=== PATIENT | male | born 1970 | race Caucasian/White ===

== ENCOUNTER 2018-12-23 15:02 | Inpatient (IN) ==
--- NOTE | 2018-12-23 16:19 | CT Scan Report ---
HEAD CT NONCONTRAST CT DOSE: 537.48 mGy.cm HISTORY: Severe headache, anticoagulated TECHNIQUE: Multiaxial CT images of the head were performed without the use of intravenous contrast. A utomated exposure control was utilized for this study. A dose lowering technique was utilized adheri ng to the principles of ALARA. Comparison: None. Findings: The paranasal sinuses and mastoid air cells are clear. The calvarium and skull base are int act. The ventricles and sulci are within normal limits. There is no mass, hematoma, midline shift, or acute infarct. Impression: No acute intracranial abnormality. Electronically signed by: Willy Guzmán M.D. 12/23/2018 4:18 PM
[2018-12-23 16:20] LABS: Basophils # (auto) 0.03 K/uL (0-0.2); Basophils % (auto) 0.5 %; Eosinophils # (auto) 0.11 K/uL (0-0.5); Eosinophils % (auto) 1.7 %; Hematocrit (blood only) 28.5 % (42-52); Hemoglobin 9.4 g/dL (14.0-18.0); Immature Granulocytes # (auto) 0.01 K/uL (0.00-0.02); Immature Granulocytes % (auto) 0.2 %; Lymphocytes # (auto) 1.75 K/uL (1.2-3.4); Lymphocytes % (auto) 26.4 %; Mean Corpuscular Volume 89.6 fL (80-100); Mean Platelet Volume 8.9 fL (7.4-10.4); Monocytes # (auto) 0.42 K/uL (0.11-0.59); Monocytes % (auto) 6.3 %; Neutrophils # (auto) 4.32 K/uL (1.4-6.5); Neutrophils % (auto) 64.9 %; Platelet Count 233 K/uL (130-400); RDW Coefficient of Variation 15.5 % (11.5-14.5); RDW Standard Deviation 50.2 fL (36.4-46.3); Red Blood Count 3.18 M/uL (4.7-6.1); White Blood Count 6.64 K/uL (4.8-10.8)
--- NOTE | 2018-12-23 16:23 | XRay Report ---
XR chest 1V portable HISTORY: dizziness COMPARISON: None. FINDINGS: The heart is normal in size. Small left pleural effusion and left basilar densities. The ri ght lung is clear. No pneumothorax. No evidence for pulmonary edema. Poststernotomy changes. Right ju gular catheter terminates at the right atrium. IMPRESSION: Small left pleural effusion and left basilar densities. This favors atelectasis from the pleural effu britton but could also represent a pneumonia. Electronically signed by: Willy Guzmán M.D. 12/23/2018 4:22 PM
[2018-12-23] MEDS ORDERED: SODIUM CHLORIDE 0.9% 1000ML 1,000 ML IV STA (16:30)
[2018-12-23 16:36] LABS: INR 2.2 (0.9-1.1); Partial Thromboplastin Ratio 1.3; Partial Thromboplastin Time 34.2 Seconds (21.0-31.0)
[2018-12-23 16:57] LABS: Albumin Globulin Ratio 0.6 (0.9-2); Albumin Level 2.3 gm/dl (3.4-5.0); Bilirubin,Total 0.3 mg/dl (0.2-1); Est GFR (African American) 9.4; Est GFR (Non-African American) 8.1; Globulin 4.1 gm/dl (2.5-4.0); Magnesium 2.1 mg/dl (1.8-2.4); Potassium 4.7 mmol/L (3.5-5.1); Total Protein 6.4 gm/dl (6.4-8.2); Troponin I 0.017 ng/ml (0-0.045)
--- NOTE | 2018-12-23 18:30 | History & Physical Report ---
Date of Service December 23, 2018 Assessment & Plan (1) Stroke-like symptoms: Likely related to elevated BP, resolved CT head: neg for acute MRI/MRA pending Resume home meds + new medications as per [facility] d/c summary Had an ECHO on admission, EF 50-55%, will not repeat Tele monitor Pt states hx of prior plavix use but was stopped given coumadin use Will hold on neuro c/s for now Hold on PT/OT/ST for now (2) CKD (chronic kidney disease): HD M/W/F Renal c/s pending (3) Pulmonary emboli: Continue coumadin Takes 5mg M/W/F/Peck, 7.5mg others (4) Hypothyroid: States he takes medication for this, but nothing on d/c paperwork Pt could not remember the name of the medication and when I suggested levothyroxine, he agreed. Has no idea regarding dosing Will need clarified (5) Hyperlipidemia: continue home meds LDL 12/21 129 (6) HTN (hypertension): As above (7) DM type 2 (diabetes mellitus, type 2): SSI PRN Home lantus dose is 23 units HS A1c done 12/21 8.2 (8) Myocardial infarct: CABG 2016, no longer on plavix due to coumadin use per pt (9) GERD (gastroesophageal reflux disease): States he is not supposed to take omeprazole due to its potential for kidney damage but that it works better than what he was changed to so he buys this over the counter (10) DVT prophylaxis: Therapeutic on coumadin History of Present Illness Primary Care Provider: NO PCP 48 y/o M c/o sudden onset R sided n/t and weakness. Pt was d/c'd from [facility] earlier today. He had been admitted there for 3 days for uncontrolled HTN. Pt had been at HD on 12/20. His usual HD days are M//, but he missed his Saturday session due to feeling generally unwell. He was at HD and states his BP was 220/201. He states that this happens frequently when he first starts HD but that as he has his tx it will go back to a more reasonable level. It did not and pt developed chest pain, so he was sent to the ED at [facility] after he completed HD. Per records from [facility], during his admission, pt had an ECHO that showed EF 50-55%. He was started on clonidine patch and valsartan. Both pt and records state that on d/c pt was doing well. His BP was WNL and he felt fine to go home. Pt states that he left and drove to home and then the grocery and had no issues. Later, he noted sudden onset of R sided n/t and weakness. He has peripheral neuropathy and therefore some ambulation issues at baseline, however this was different. He could not move his R side to walk at all. He felt very weak. He called his cousin who is a nurse. She came over to his home, but pt's sx had resolved spontaneously. While she was there, these sx returned and it was decided he should come to the ED. He has never had these sx prior. While in the ED, pt's sx resolved. He states that he feels at his usual with the exception of his R 5th finger is still n/t. He was able to ambulate without issue other than his usual dysfunction related to his PN. Pt denies headache or vision changes. Pt denies fever, SOB, chest pain, abd pain, n/v. Pt states he has diarrhea at baseline due to the amount of pills he takes. Pt has LE swelling and pain related to his PN at baseline. Pt states prior to admission as [facility] he was taking carvedilol and hydralazine for his HTN. He had been on amlodipine prior, but this was [facility] due to nausea. Allergies Allergy/AdvReac Type Severity Reaction Status Date / Time furosemide [From Lasix] AdvReac Gastrointestinal Unverified 12/23/18 18:16 Upset Home Medications Home Medications Medication Instructions Recorded Confirmed Type B complex-vitamin C-folic acid 1 mg PO DAILY 12/23/18 12/23/18 History [Renal Vitamin] Lactobacillus acidophilus 2 tabs PO DAILY 12/23/18 12/23/18 History acetaminophen [Tylenol] 325 mg PO Q6H PRN 12/23/18 12/23/18 History carvedilol 6.25 mg PO BID 12/23/18 12/23/18 History ergocalciferol (vitamin D2) 5,000 unit PO WK 12/23/18 12/23/18 History hydralazine 10 mg PO TID 12/23/18 12/23/18 History insulin aspart U-100 3 unit SUBCUT TID 12/23/18 12/23/18 History insulin glargine [Lantus U-100 25 unit SUBCUT HS 12/23/18 12/23/18 History Insulin] metoclopramide HCl 5 mg PO DAILY 12/23/18 12/23/18 History nitroglycerin 0.4 mg SUBLINGUAL DIRECTED PRN 12/23/18 12/23/18 History pantoprazole 40 mg PO DAILY 12/23/18 12/23/18 History pramipexole 0.125 mg PO HS 12/23/18 12/23/18 History rosuvastatin 40 mg PO HS 12/23/18 12/23/18 History sertraline [Zoloft] 100 mg PO DAILY 12/23/18 12/23/18 History sevelamer carbonate 800 mg PO TID 12/23/18 12/23/18 History warfarin [Coumadin] 5 mg PO DAILY 12/23/18 12/23/18 History Past Med/Surg History Social History Feels Safe at Home: Yes Smoking Status: Former smoker Hx Alcohol Use: No Hx Substance Use: No Review of Systems Pertinent positives and negatives reviewed in HPI--all others negative Physical Exam Vital Signs (Past 24 Hours): Last Vital Signs Temp 36.6 C 12/23/18 15:12 Pulse 77 12/23/18 17:06 Resp 20 12/23/18 17:06 BP 188/110 H 12/23/18 17:06 Pulse Ox 97 12/23/18 17:06 Constitutional: WD/WN, vitals as above Eyes: normal visual willams by confrontation and + anicteric sclerae Neck: normal visual inspection and trachea midline Respiratory: normal respiratory effort, lungs clear to auscultation Cardiovascular: Rate/Rhythm: regular rate and regular rhythm Gastrointestinal (Abdomen): Inspection/Auscultation: abdomen not distended Percussion/Palpation: abdomen soft; abdomen nontender Musculoskeletal: Head/Neck/Chest: normocephalic and head atraumatic 1+ pitting LE edema, peripheral pulses intact Skin: no rashes, warm and dry Neurologic: awake; not confused Speech / Cognition: normal speech Psychiatric: A+Ox3, euthymic affect Results & Data Diagnostic Findings CT head: neg for acute CXR: atelectasis vs PNA ECG Rhythm: normal sinus Code Status & VTE Plan Code Status Other: Full code, although pt states no prolonged mechanical life support, feeding tubes, etc VTE Prophylaxis Plan VTE Prophylaxis will be ordered: Yes
[2018-12-23] MEDS ORDERED: cloNIDine HCL 0.3 MG/24 HR TRANSDERM SYS TD SCH (19:00)
[2018-12-23] MEDS ORDERED: DEXTROSE 50% 50 ML SYRINGE IV PRN (19:03)
[2018-12-23] MEDS ORDERED: GLUCOSE 40% GEL 15 GM TUBE PO PRN (19:03)
[2018-12-23] MEDS ORDERED: GLUCOSE 10 TABS/TUBE PO PRN (19:03)
[2018-12-23] MEDS ORDERED: GLUCAGON FOR INJ 1 MG VIAL SQ PRN (19:03)
[2018-12-23] MEDS ORDERED: CARBOHYDRATES FOR HYPOGLYCEMIA PO PRN (19:03)
[2018-12-23] MEDS ORDERED: NITROGLYCERIN SL 0.4 MG/TAB TAB SL PRN (19:18)
[2018-12-23] MEDS ORDERED: PHARMACIST DISCHARGE MED REC CONSULT PRN (19:18)
[2018-12-23] MEDS ORDERED: ACETAMINOPHEN 325 MG TAB PO PRN (19:18)
[2018-12-23] MEDS ORDERED: MAGNESIUM HYDROXIDE SUSP 30 ML UDC PO PRN (19:18)
[2018-12-23] MEDS ORDERED: ONDANSETRON INJ 2 MG/ML 2 ML VIAL IV PRN (19:18)
[2018-12-23] MEDS ORDERED: NON-FORMULARY MEDICATION (Acetaminophen [Tylenol] 325 MG) PO PRN (19:18)
--- NOTE | 2018-12-23 20:14 | Emergency Department Note ---
History of Present Illness General Chief complaint: Headache Stated complaint: HEADACHE Time Seen by Provider: 12/23/18 15:25 History of Present Illness Maximum Pain Intensity: 10 This is a 48-year-old male that presents to the emergency department via ambulance with complaints of "headache". The patient notes that he has a history of diabetes, chronic kidney disease, is currently on dialysis, and history of [place]. He notes that he was recently admitted to [facility] for the past 3 days. He was discharged this morning. He notes that he was discharged secondary to hypertension. He notes that he undergoes dialysis 3 times a week. He states that shortly after 930, around 10:30 a.m. he began with feeling his eyes going to pass out, headache and minimal right-sided weakness. He became concerned, called the ambulance therefore prompting his arrival here. Home Medications Home Medications Medication Instructions Recorded Confirmed Type B complex-vitamin C-folic acid 1 mg PO DAILY 12/23/18 12/23/18 History [Renal Vitamin] Lactobacillus acidophilus 2 tabs PO DAILY 12/23/18 12/23/18 History acetaminophen [Tylenol] 325 mg PO Q6H PRN 12/23/18 12/23/18 History carvedilol 6.25 mg PO BID 12/23/18 12/23/18 History ergocalciferol (vitamin D2) 5,000 unit PO WK 12/23/18 12/23/18 History hydralazine 10 mg PO TID 12/23/18 12/23/18 History insulin aspart U-100 3 unit SUBCUT TID 12/23/18 12/23/18 History insulin glargine [Lantus U-100 25 unit SUBCUT HS 12/23/18 12/23/18 History Insulin] metoclopramide HCl 5 mg PO DAILY 12/23/18 12/23/18 History nitroglycerin 0.4 mg SUBLINGUAL DIRECTED PRN 12/23/18 12/23/18 History pantoprazole 40 mg PO DAILY 12/23/18 12/23/18 History pramipexole 0.125 mg PO HS 12/23/18 12/23/18 History rosuvastatin 40 mg PO HS 12/23/18 12/23/18 History sertraline [Zoloft] 100 mg PO DAILY 12/23/18 12/23/18 History sevelamer carbonate 800 mg PO TID 12/23/18 12/23/18 History warfarin [Coumadin] 5 mg PO DAILY 12/23/18 12/23/18 History Allergies Allergy/AdvReac Type Severity Reaction Status Date / Time furosemide [From Lasix] AdvReac Gastrointestinal Unverified 12/23/18 18:16 Upset Past Med/Surg History Medical History Myocardial infarct DM type 2 (diabetes mellitus, type 2) GERD (gastroesophageal reflux disease) HTN (hypertension) Hyperlipidemia Hypothyroid Pulmonary emboli CKD (chronic kidney disease) Social History Feels Safe at Home: Yes Smoking Status: Former smoker Hx Alcohol Use: No Hx Substance Use: No Review of Systems A total of 10 systems reviewed and were otherwise negative Physical Exam Vital Signs Vital Signs - 24 hr 12/23/18 15:12 12/23/18 15:44 12/23/18 17:06 Temperature 36.6 C Temperature Source Oral Sepsis Recent Fever Within 48 Hours No Sepsis Action Taken by Nursing No Action Required Pulse Rate 71 Pulse Rate [Finger] 77 Pulse Rhythm [Finger] Pulse Strength [Finger] Respiratory Rate 18 20 Respiratory Effort / Characteristics Respiratory Depth Respiratory Pattern Blood Pressure 167/86 H Blood Pressure [Right Arm] 188/110 H Blood Pressure Mean 113 Blood Pressure Mean [Right Arm] 136 Blood Pressure Position [Right Arm] Pulse Oximetry 97 98 97 Oxygen Delivery Method Room Air Room Air Room Air 12/23/18 18:26 12/23/18 19:25 Temperature Temperature Source Sepsis Recent Fever Within 48 Hours Sepsis Action Taken by Nursing Pulse Rate Pulse Rate [Finger] 83 85 Pulse Rhythm [Finger] Regular Pulse Strength [Finger] Normal Respiratory Rate 18 18 Respiratory Effort / Characteristics Non-Labored Spontaneous Non-Labored Respiratory Depth Normal Normal Respiratory Pattern Regular Regular Blood Pressure Blood Pressure [Right Arm] 188/102 H 206/100 H Blood Pressure Mean Blood Pressure Mean [Right Arm] 130 135 Blood Pressure Position [Right Arm] Lying Sitting Pulse Oximetry 98 97 Oxygen Delivery Method Room Air Room Air VITAL SIGNS - Vital signs and nursing notes were reviewed. Stable. Afebrile. GENERAL -48-year-old male appearing his stated age who is in no acute distress. Communicates well with provider and answers questions appropriately. SKIN - Without rashes. No meningeal or petechial rash. Port in right anterior chest. HEAD - NC/AT. EYES - PERRL with EOMI bilaterally. Sclera anicteric. EARS - No deformities of external structures noted on gross examination bilaterally. NOSE - Midline and without cyanosis. No epistaxis or purulent drainage noted. MOUTH/OROPHARYNX - Without perioral cyanosis. Buccal mucosa pink and moist and without leukoplakia. Tongue midline with equal elevation of palate bilaterally. No tonsillar hypertrophy, erythema, or exudates noted. Fair dentition noted. No facial droop. Patient has symmetric movements of the lips. NECK - Neck with FROM. Supple to palpation. No lymphadenopathy noted. No nuchal rigidity. LUNGS - Chest wall symmetric without accessory muscle use, intercostals retractions, or central cyanosis. Normal vesicular breath sounds CTA B/L. No wheezes, rales, or rhonchi appreciated. CARDIAC - RRR with S1/S2. No murmur, rubs, or gallops appreciated. ABDOMEN - Abdominal contour normal without pulsations or visible masses. BS n ormoactive all four quadrants. No tenderness, palpable masses, hepatosplenomegaly, or ascites noted. EXTREMITIES - No clubbing or peripheral cyanosis. No pretibial edema present. +5/5 strength noted in UE/LE bilaterally. NEUROLOGIC - Cranial nerves II through XII grossly intact. Minimal, right-sided lithographic proofer apprentice strength decreased compared to the left. Patient is unable to actively extend at the left hip with is much strength as the left. PSYCH - A&Ox3 and cooperates fully with examiner. Pt is very pleasant and interacts well with examiner. Course Administered Medications Discontinued Medications Sodium Chloride (Nss 1000ml) 1,000 mls @ 125 mls/hr IV .Q8H STA Stop: 12/24/18 00:29 Last Admin: 12/23/18 17:05 Dose: 125 mls/hr Documented by: [id number] Medical Decision Making Laboratory Data Result diagrams: 12/23/18 16:10 12/23/18 16:10 Lab Results 12/23/18 12/23/18 12/23/18 Range/Units 16:10 16:10 16:10 WBC 6.64 (4.8-10.8) K/uL RBC 3.18 L (4.7-6.1) M/uL Hgb 9.4 L (14.0-18.0) g/dL Hct 28.5 L (42-52) % MCV 89.6 (80-100) fL MCH 29.6 (25-34) pg MCHC 33.0 (32-36) g/dL RDW Std Deviation 50.2 H (36.4-46.3) fL RDW Coeff of Gomez 15.5 H (11.5-14.5) % Plt Count 233 (130-400) K/uL MPV 8.9 (7.4-10.4) fL Immature Gran % (Auto) 0.2 % Neut % (Auto) 64.9 % Lymph % (Auto) 26.4 % [place] % (Auto) 6.3 % Eos % (Auto) 1.7 % Baso % (Auto) 0.5 % Immature Gran # (Auto) 0.01 (0.00-0.02) K/uL Neut # (Auto) 4.32 (1.4-6.5) K/uL Lymph # (Auto) 1.75 (1.2-3.4) K/uL [place] # (Auto) 0.42 (0.11-0.59) K/uL Eos # (Auto) 0.11 (0-0.5) K/uL Baso # (Auto) 0.03 (0-0.2) K/uL PT 21.0 H (9.0-12.0) Seconds INR 2.2 H (0.9-1.1) APTT 34.2 H (21.0-31.0) Seconds PTT Ratio 1.3 Sodium 137 (136-145) mmol/L Potassium 4.7 (3.5-5.1) mmol/L Chloride 105 (98-107) mmol/L Carbon Dioxide 27 (21-32) mmol/L Anion Gap 5.0 (3-11) BUN 22 H (7-18) mg/dl Creatinine 7.20 H* (0.6-1.4) mg/dl Est Cr Clr Drug Dosing 15.0 ml/min Est GFR ( Amer) 9.4 Est GFR (Non-Af Amer) 8.1 BUN/Creatinine Ratio 3.0 L (10-20) Glucose 180 H (70-99) mg/dl Calcium 8.0 L (8.5-10.1) mg/dl Magnesium 2.1 (1.8-2.4) mg/dl Total Bilirubin 0.3 (0.2-1) mg/dl AST 9 L (15-37) U/L ALT 14 (12-78) U/L Alkaline Phosphatase 68 (45-117) U/L Troponin I 0.017 (0-0.045) ng/ml Total Protein 6.4 (6.4-8.2) gm/dl Albumin 2.3 L (3.4-5.0) gm/dl Globulin 4.1 H (2.5-4.0) gm/dl Albumin/Globulin Ratio 0.6 L (0.9-2) Imaging Data Radiologist's Impression: HEAD CT NONCONTRAST CT DOSE: 537.48 mGy.cm HISTORY: Severe headache, anticoagulated TECHNIQUE: Multiaxial CT images of the head were performed without the use of intravenous contrast. Automated exposure control was utilized for this study. A dose lowering technique was utilized adhering to the principles of ALARA. Comparison: None. Findings: The paranasal sinuses and mastoid air cells are clear. The calvarium and skull base are intact. The ventricles and sulci are within normal limits. There is no mass, hematoma, midline shift, or acute infarct. Impression: No acute intracranial abnormality. Electronically signed by: Willy Guzmán M.D. 12/23/2018 4:18 PM XR chest 1V portable HISTORY: dizziness COMPARISON: None. FINDINGS: The heart is normal in size. Small left pleural effusion and left basilar densities. The right lung is clear. No pneumothorax. No evidence for pulmonary edema. Poststernotomy changes. Right jugular catheter terminates at the right atrium. IMPRESSION: Small left pleural effusion and left basilar densities. This favors atelectasis from the pleural effusion but could also represent a pneumonia. Electronically signed by: Willy Guzmán M.D. 12/23/2018 4:22 PM [facility] Narrative Patient was seen and evaluated as above in room D9. Review was performed of nursing notes and vital signs. After obtaining a thorough history and physical examination the above work up was performed. He presents today via ambulance. He was recently met for 3 days at [facility] for elevated blood pressure. He presents today with strokelike symptoms. He has no facial droop on exam. There is minimal questionable decreased lithographic proofer apprentice strength on the right compared to the left. No obvious deficit. When he does ambulate he has a slight change in gait with the right side. The patient is not a TPA candidate noting he is currently on Coumadin. Labs were obtained. No leukocytosis. Anemia at 9.4. Patient does have evidence of kidney failure with creatinine of 7.20 but is undergoing dialysis. Troponin is 0.017. A bedside EKG was performed and reveals normal sinus rhythm, with ST and T wave abnormality with prolonged QT. No evidence of [place] on this exam. I would note that he has no chest pain at this time. Secondary to his presentation I do believe that further evaluation and management is warranted in the inpatient setting. Case discussed with the attending physician and subsequently the hospitalist. Case was discussed with the attending physician. In the evaluation and treatment of this patient, the following differential diagnoses were considered: Concussion, Contrecoup Injury, Brain Tumor, Depression, Encephalitis, Hypothyroidism, Meningitis, CVA, TIA, Migraine, Cluster Headache, Intracranial Abnormality, Intracranial Hemorrhage, Subdural Hematoma, Subarachnoid Hemorrhage, Hydrocephalus, among others. Impression & Plan Stroke-like symptoms Discharge Plan Visit Data *Final* Discharge Date/Time: 12/23/18 18:55 Chief Complaint: Headache Stated Complaint: HEADACHE ED Provider: Christy Rowley ED Midlevel Provider: Selwyn Barreto Discharge Problem: Stroke-like symptoms Patient Disposition: Still a Patient Condition: Fair Discharge Instructions Interventions: ED Discharge Assessment Last Done: 12/23/18 18:55
[2018-12-23 21:05] LABS: Appearance Urine Clear (Clear); Bacteria Urine Automated Negative (Negative); Bilirubin Urine Negative (Negative); Blood Urine Trace (Negative); Color Urine Yellow; Epithelial Cell Urine Auto >30 /lpf (0-5); Glucose Urine UA 3+ (Negative); Ketones Urine Negative (Negative); Leukocyte Esterase Urine Negative (Negative); Nitrite Urine Negative (Negative); Specific Gravity Urine 1.042 (1.000-1.030); Urobilinogen Urine Negative (Negative); pH Urine 7.5 (4.5-7.5)
[2018-12-23 21:06] LABS: Protein Urine 4+ (Negative)
[2018-12-23] MEDS: CARVEDILOL 6.25 MG TAB PO SCH (21:37)
[2018-12-23] MEDS: WARFARIN SOD 7.5 MG TAB PO SCH (21:37)
[2018-12-23] MEDS: PRAMIPEXOLE DIHYDROCHLO 0.25 MG TAB PO SCH (21:38)
[2018-12-23] MEDS: HydrALAZINE 10 MG TAB PO SCH (21:38)
[2018-12-23] MEDS: ROSUVASTATIN CALCIUM 20 MG TAB PO SCH (21:39)
[2018-12-23] MEDS: INSULIN ASPART 100 UNITS/ML 3 ML PEN SC SCH (21:54)
[2018-12-23] MEDS: INSULIN GLARGINE SOLOSTAR 100 UNITS/ML 3 ML PEN SQ SCH (21:54)
--- NOTE | 2018-12-23 22:33 | Emergency Department Note ---
ED Visit Note I have personally seen and evaluated the patient with the PA. I agree with the diagnosis and management decisions and have been personally involved in the case. Upon my evaluation, the patient had very slight weakness of the right upper and right lower extremity compared to the left. There is no cranial nerve deficit, speech impairment. He was alert and oriented x3. CT imaging of the head is negative. Patient's case was discussed with the hospitalist service for further management. Please see Selwyn Barreto PA-C's notes for further details of the history, physical and visit. .
--- NOTE | 2018-12-23 23:25 | Magnetic Resonance Report ---
Brain MRA HISTORY: Stroke symptoms. Severe headache. TECHNIQUE: 3-D [id number] MRA of the brain was performed without contrast. COMPARISON STUDY: Head CT 12/23/2018. FINDINGS: Visualized intracranial internal carotid arteries, distal vertebral arteries, and basilar a rtery are widely patent. There is no significant stenosis, occlusion, or aneurysm seen within the lisbeth ateral ACAs, MCAs, or airdrop systems technician. IMPRESSION: No significant stenosis, occlusion, or aneurysm within the [place] of [place]. Electronically signed by: Willy Guzmán M.D. 12/23/2018 11:24 PM
[2018-12-23] MEDS: CHECK CLONIDINE PATCH PLACEMENT SCH (23:33)
--- NOTE | 2018-12-23 23:33 | Magnetic Resonance Report ---
Brain MRI WITHOUT CONTRAST HISTORY: Stroke like symptoms. TECHNIQUE: Multiplanar multisequence MRI of the brain was performed without the use of contrast. COMPARISON STUDY: None. FINDINGS: There are no areas of restricted diffusion to suggest acute infarction. The midline structu res are intact. The paranasal sinuses are clear. The mastoid air cells are clear. The ventricles and sulci are within normal limits for age. There is no mass, hematoma, midline shift. The major vascular flow-voids at the skull base are well maintained. Patchy periventricular white matter T2 hyperintens ity is noted. This is greater than expected for age. This most pronounced within the bilateral pariet al lobes, left greater than right. There are also a few punctate T2 hyperintense foci seen within the left wanda, right basal ganglia, and bilateral posterior thalami. This could be due to additional foc i of demyelination or old lacunar infarcts. IMPRESSION: 1. No acute infarct. 2. Patchy periventricular white matter T2 hyperintensity which is greater than expected for age. This may represent a demyelinating disease such as multiple sclerosis. Lyme's disease or a vasculitis cou ld also have a similar appearance. 3. A few punctate T2 hyperintense foci within the left wanda, right basal ganglia, and bilateral poste rior thalami. This could also be due to foci of demyelination or old lacunar infarcts. 4. A follow-up contrast enhanced brain MRI is recommended for further evaluation. Electronically signed by: Willy Guzmán M.D. 12/23/2018 11:32 PM
[2018-12-24 06:32] LABS: Estimated Average Glucose 169 mg/dl; Hemoglobin A1C 7.5 % (4.5-5.6)
--- NOTE | 2018-12-24 06:41 | Ultrasound Report ---
CAROTID ARTERY ULTRASOUND CLINICAL HISTORY: Stroke-like symptoms. COMPARISON STUDY: None. TECHNIQUE: Real-time, grayscale, and color Doppler sonography of the carotid and vertebral arteries w as performed. Images were viewed in the transverse and longitudinal planes. FINDINGS: There is no significant atherosclerotic plaque. Velocity measurements are listed below. COMMON CAROTID PEAK SYSTOLIC VELOCITY (CM/S): RIGHT 64 LEFT 76 ICA PEAK SYSTOLIC VELOCITY (CM/S): RIGHT 69 LEFT 70 Systolic ratios between the internal to common carotid arteries were normal. Antegrade flow is seen in the vertebral arteries. The external carotid arteries are patent. Due to limb restrictions, blood pressure was not obtained. IMPRESSION: No evidence of a hemodynamically significant stenosis. Electronically signed by: Donald Rivero M.D. 12/24/2018 6:39 AM
[2018-12-24 08:15] LABS: Basophils # (auto) 0.03 K/uL (0-0.2); Basophils % (auto) 0.4 %; Eosinophils # (auto) 0.08 K/uL (0-0.5); Eosinophils % (auto) 1.1 %; Hematocrit (blood only) 29.5 % (42-52); Hemoglobin 9.7 g/dL (14.0-18.0); Immature Granulocytes # (auto) 0.01 K/uL (0.00-0.02); Immature Granulocytes % (auto) 0.1 %; Lymphocytes # (auto) 1.25 K/uL (1.2-3.4); Lymphocytes % (auto) 17.7 %; Mean Corpuscular Hgb Conc 32.9 g/dL (32-36); Mean Corpuscular Volume 89.4 fL (80-100); Mean Platelet Volume 9.6 fL (7.4-10.4); Monocytes # (auto) 0.38 K/uL (0.11-0.59); Monocytes % (auto) 5.4 %; Neutrophils # (auto) 5.32 K/uL (1.4-6.5); Neutrophils % (auto) 75.3 %; Platelet Count 233 K/uL (130-400); RDW Coefficient of Variation 15.2 % (11.5-14.5); RDW Standard Deviation 49.1 fL (36.4-46.3); White Blood Count 7.07 K/uL (4.8-10.8)
[2018-12-24] MEDS: CHECK CLONIDINE PATCH PLACEMENT SCH ×2 (08:19→16:13)
[2018-12-24] MEDS: INSULIN ASPART 100 UNITS/ML 3 ML PEN SC SCH ×4 (08:19→21:39)
[2018-12-24] MEDS: SEVELAMER HCL 800 MG TABLET PO SCH ×3 (08:21→19:02)
[2018-12-24] MEDS: HydrALAZINE 10 MG TAB PO SCH ×3 (08:21→19:01)
[2018-12-24] MEDS: CARVEDILOL 6.25 MG TAB PO SCH ×2 (08:23→21:38)
[2018-12-24] MEDS: PANTOprazole 40 MG TAB PO SCH (08:24)
[2018-12-24] MEDS: VALSARTAN 80 MG TAB PO SCH (08:24)
[2018-12-24] MEDS: SERTRALINE HCL 100 MG TABLET PO SCH (08:24)
[2018-12-24] MEDS: METOCLOPRAMIDE HCL 5 MG TABLET PO SCH (08:25)
[2018-12-24 08:26] LABS: INR 2.1 (0.9-1.1); Prothrombin Time 20.5 Seconds (9.0-12.0)
[2018-12-24] MEDS: NEPHROCAPS PO SCH (08:26)
[2018-12-24] MEDS ORDERED: LACTOBACILLUS ACIDOPHILUS PO SCH (09:00)
[2018-12-24 09:03] LABS: BUN Creatinine Ratio 3.4 (10-20); Calcium 7.8 mg/dl (8.5-10.1); Creatinine Clr Calc Pharmacy 13.1 ml/min; Est GFR (African American) 8.1; Magnesium 2.1 mg/dl (1.8-2.4); Phosphorus 4.9 mg/dl (2.5-4.9); Potassium 4.5 mmol/L (3.5-5.1)
[2018-12-24] MEDS ORDERED: SODIUM CHLORIDE 0.9% 1000ML 1,000 ML IV PRN (09:50)
--- NOTE | 2018-12-24 11:48 | Nephrology Consultation ---
Date of Consultation December 24, 2018 Assessment & Plan (1) ESRD (end stage renal disease) on dialysis: -- ESRD due to diabetic nephropathy. Patient dialyzes MWF at [facility]. Will provide HD today and challenge EDW due to peripheral edema (outpatient HD EDW recorded as 100 kg) (2) HTN (hypertension): -- Monitor BP following HD -- If blood pressure remains elevated despite UF w/ dialysis, consider changing clonidine to oral nitrate (3) Stroke-like symptoms: -- Imaging studies reviewed today. Suspect changes related to HTN. Recommend consultation w/ Neurology (4) Peripheral vascular disease: -- Patient has ulcerative lesion on the dorsum of his R foot. Recommend consultation w/ wound care (5) DM type 2 (diabetes mellitus, type 2): History of Present Illness Reason for Consultation: ESRD requiring HD, HTN Attending Physician: Kenton Cruz MD, PhD, [facility] History of Present Illness Mr. Vieira is a 48 year old white male who is seen at the request of Dr. Cruz to provide inpatient HD and assist w/ medical management. Medical records in the EMR were reviewed and are summarized as follows: Mr. Vieira has ESRD due to diabetic nephropathy. He has been on IHD for approximately one year. He lives in [place], [place] and dialyzes at the [facility] dialysis unit (MWF, 4hrs, 3K 2.5Ca bath, Revaclear 300 dialyzer, EDW 99kg. R IJ THC in place. AVF has not yet been created). His PMH is significant for AODM > 20 years complicated by retinopathy, PVD s/p amputation 3rd & 4th toes L foot, ulcerative lesion at base of R 1st metatarsal, ASCVD s/p CABG x 3 [facility], and hypothyroidism. Mr. Vieira reports that his SBP at dialysis typically runs 200 - 220 predialysis and 160 - 180 mmHG following dialysis. He has chronic LE swelling. Mr. Vieira reports that he developed chest discomfort following HD 12/19/18. He was admitted to [facility] w/ a diagnosis of hypertensive urgency. Evaluation for ACS, aortic aneurysm and PE were all negative. Patient was maintained on Carvedilol 25 mg po BID and Valsartan 160 mg po BID and Clonidine TTS-3 were added to his medical regimen. Mr. Vieira was discharged to home 12/23/18. Within a few hours of returning home he developed a ARMENTA, visual changes and unilateral weakness. EMS was called and Mr. Vieira was brought to [facility] ED for evaluation. SBP was > 200 mmHG. CXR revealed small pleural effusion but no infiltrate. Head CT was negative for CVA. MRA cerebral vessels was negative for thrombosis or aneurysm. MRI of brain with white matter changes concerning for hypertensive injury or demyelinating disease. Allergies Allergy/AdvReac Type Severity Reaction Status Date / Time furosemide [From Lasix] AdvReac Gastrointestinal Unverified 12/23/18 18:16 Upset Home Medications Home Medications Medication Instructions Recorded Confirmed Type B complex-vitamin C-folic acid 1 mg PO DAILY 12/23/18 12/23/18 History [Renal Vitamin] Lactobacillus acidophilus 2 tabs PO DAILY 12/23/18 12/23/18 History acetaminophen [Tylenol] 325 mg PO Q6H PRN 12/23/18 12/23/18 History carvedilol 6.25 mg PO BID 12/23/18 12/23/18 History ergocalciferol (vitamin D2) 5,000 unit PO WK 12/23/18 12/23/18 History hydralazine 10 mg PO TID 12/23/18 12/23/18 History insulin aspart U-100 3 unit SUBCUT TID 12/23/18 12/23/18 History insulin glargine [Lantus U-100 25 unit SUBCUT HS 12/23/18 12/23/18 History Insulin] metoclopramide HCl 5 mg PO DAILY 12/23/18 12/23/18 History nitroglycerin 0.4 mg SUBLINGUAL DIRECTED PRN 12/23/18 12/23/18 History pantoprazole 40 mg PO DAILY 12/23/18 12/23/18 History pramipexole 0.125 mg PO HS 12/23/18 12/23/18 History rosuvastatin 40 mg PO HS 12/23/18 12/23/18 History sertraline [Zoloft] 100 mg PO DAILY 12/23/18 12/23/18 History sevelamer carbonate 800 mg PO TID 12/23/18 12/23/18 History warfarin [Coumadin] 5 mg PO DAILY 12/23/18 12/23/18 History Patient History Medical History Myocardial infarct DM type 2 (diabetes mellitus, type 2) GERD (gastroesophageal reflux disease) HTN (hypertension) Hyperlipidemia Hypothyroid Pulmonary emboli CKD (chronic kidney disease) Depression Dialysis patient Surgical History History of hernia surgery Hx of cardiac catheterization Social History Communication Ability: Effective Beliefs That Will Affect Care: None Current Living Situation: Alone Other Information That Helps Us Care for You: No Feels Safe at Home: Yes Safety Concerns: Feels Safe At This Time Smoking Status: Unknown if ever smoked Hx Alcohol Use: No Hx Substance Use: No Review of Systems Respiratory: no dyspnea Cardiovascular: no chest pain Gastrointestinal: no abdominal pain Physical Exam Vital Signs (Past 24 Hours): Last Vital Signs Temp 36.3 C L 12/24/18 08:11 Pulse 72 12/24/18 08:11 Resp 21 12/24/18 08:11 BP 208/115 H 12/24/18 08:11 Pulse Ox 98 12/24/18 08:11 Eyes: PERRL, conjunctivae normal, anicteric sclerae Neck: trachea midline, no thyromegaly Respiratory: normal respiratory effort, lungs clear to auscultation Cardiovascular: RRR, no murmur, no edema Gastrointestinal (Abdomen): normal bowel sounds, soft, nontender, no hepatosplenomegaly Results & Data Laboratory Results Laboratory Tests 12/23/18 12/24/18 12/24/18 20:43 07:12 07:12 WBC 7.07 Hgb 9.7 L Hct 29.5 L Plt Count 233 Sodium 140 Potassium 4.5 Chloride 108 H Carbon Dioxide 24 BUN 28 H Creatinine 8.20 H* D Glucose 85 Calcium 7.8 L Urine Color Yellow Urine Appearance Clear Ur Specific Byron 1.042 H Urine Protein 4+ H Urine Glucose (UA) 3+ H Urine Blood Trace H Urine WBC (Auto) 5-10 H Urine RBC (Auto) 10-30 H U Hyaline Cast (Auto) 5-10 H U Epithel Cells (Auto) >30 H
--- NOTE | 2018-12-24 15:38 | Hospitalist Progress Note ---
Date of Service December 24, 2018 Assessment & Plan (1) Stroke-like symptoms: (2) CKD (chronic kidney disease): (3) Pulmonary emboli: (4) Hypothyroid: (5) Hyperlipidemia: (6) HTN (hypertension): (7) DM type 2 (diabetes mellitus, type 2): (8) Myocardial infarct: (9) GERD (gastroesophageal reflux disease): (10) DVT prophylaxis: 48-year-old male with end-stage renal disease on dialysis admitted because of strokelike symptoms, per note: c/o sudden onset R sided weakness. Pt was d/c'd from [facility] on the day of admission. He had been admitted there for 3 days for uncontrolled HTN. Pt had been at HD on 12/20. His usual HD days are //, but he missed his Saturday session due to feeling generally unwell. He was at HD and states his BP was 220/201. Right-sided weakness and tingling or numbness, stroke-like symptoms: , Likely related to elevated BP, resolved, CT head: neg for acute MRI/MRA unremarkable Carotid Doppler ultrasound was unremarkable however MRI: Per report we will request neuro consult 1. No acute infarct. 2. Patchy periventricular white matter T2 hyperintensity which is greater than expected for age. This may represent a demyelinating disease such as multiple sclerosis. Lyme's disease or a vasculitis could also have a similar appearance. 3. A few punctate T2 hyperintense foci within the left wanda, right basal ganglia, and bilateral posterior thalami. This could also be due to foci of demyelination or old lacunar infarcts. 4. A follow-up contrast enhanced brain MRI is recommended for further evaluation. Resume home meds + new medications as per [place] d/c summary Had an ECHO on admission, EF 50-55%, Continue Coumadin and aspirin, End-stage renal disease on dialysis M/W/F History of pulmonary emboli: Continue coumadin Takes 5mg M/W//Peck, 7.5mg others Thyroidism, dyslipidemia, hypertension, diabetic type II, myocardial infarction, stable continue current care GERD, continue current care DVT prophylaxis: Therapeutic on coumadin Subjective Patient was seen in the dialysis, Pleasant conversational no complaint, Denies facial droop numbness tingling local weakness, Denies cough sputum shortness of breath Denies nausea vomiting abdominal pain diarrhea constipation Denies dysuria urgency and frequency's, Denies skin rashes, Physical Exam Vital Signs (Past 24 Hours): Last Vital Signs Temp 36.5 C 12/24/18 11:20 Pulse 64 12/24/18 13:40 Resp 21 12/24/18 08:11 BP 136/70 12/24/18 13:40 Pulse Ox 98 12/24/18 08:11 Physical Exam: General Appearance: Looks mild tired on dialysis, otherwise WD/WN, no apparent distress, Eyes: normal inspection, PERRL, EOMI, sclerae normal ENT: normal ENT inspection, hearing grossly normal, pharynx normal Neck: supple, no adenopathy, thyroid normal, no JVD, no carotid bruits, trachea midline Respiratory/Chest: chest non-tender, normal breath sounds, no respiratory distress, no accessory muscle use, breath sounds, rales, wheezing Cardiovascular: regular rate, rhythm, no JVD, no murmur Abdomen: normal bowel sounds, non tender, soft, no organomegaly, Extremities: normal range of motion, non-tender, normal inspection, no pedal edema, no calf tenderness, normal capillary refill, pelvis stable, joint has no limited range of motion, capillary refill is normal, no cyanosis clubbing Neurologic/Psychiatric: stakes player II-XII nml as tested, no motor/sensory deficits, alert, normal mood/affect, oriented x 3 Skin: normal color, warm/dry, no rash Lymphatic: no adenopathy Results & Data Laboratory Results Laboratory Results - last 24 hr 12/23/18 12/23/18 12/23/18 16:01 16:10 16:10 WBC 6.64 RBC 3.18 L Hgb 9.4 L Hct 28.5 L MCV 89.6 MCH 29.6 MCHC 33.0 RDW Std Deviation 50.2 H RDW Coeff of Gomez 15.5 H Plt Count 233 MPV 8.9 Immature Gran % (Auto) 0.2 Neut % (Auto) 64.9 Lymph % (Auto) 26.4 [place] % (Auto) 6.3 Eos % (Auto) 1.7 Baso % (Auto) 0.5 Immature Gran # (Auto) 0.01 Neut # (Auto) 4.32 Lymph # (Auto) 1.75 [place] # (Auto) 0.42 Eos # (Auto) 0.11 Baso # (Auto) 0.03 PT 21.0 H POC INR 2.2 H INR 2.2 H APTT 34.2 H PTT Ratio 1.3 Sodium Potassium Chloride Carbon Dioxide Anion Gap BUN Creatinine Est Cr Clr Drug Dosing Est GFR ( Amer) Est GFR (Non-Af Amer) BUN/Creatinine Ratio Glucose POC Glucose Estimat Average Glucose Hemoglobin A1c Calcium Phosphorus Magnesium Total Bilirubin AST ALT Alkaline Phosphatase Troponin I Total Protein Albumin Globulin Albumin/Globulin Ratio Triglycerides Cholesterol LDL Cholesterol, Calc VLDL Cholesterol, Calc HDL Cholesterol Cholesterol/HDL Ratio Urine Color Urine Appearance Urine pH Ur Specific [place] Urine Protein Urine Glucose (UA) Urine Ketones Urine Blood Urine Nitrite Urine Bilirubin Urine Urobilinogen Ur Leukocyte Esterase Urine WBC (Auto) Urine RBC (Auto) U Hyaline Cast (Auto) U Epithel Cells (Auto) Urine Bacteria (Auto) Ur Renal Epithelial Cell Nasal Screen MRSA (PCR) 12/23/18 12/23/18 12/23/18 16:10 16:10 20:42 WBC RBC Hgb Hct MCV MCH MCHC RDW Std Deviation RDW Coeff of Gomez Plt Count MPV Immature Gran % (Auto) Neut % (Auto) Lymph % (Auto) [place] % (Auto) Eos % (Auto) Baso % (Auto) Immature Gran # (Auto) Neut # (Auto) Lymph # (Auto) [place] # (Auto) Eos # (Auto) Baso # (Auto) PT POC INR INR APTT PTT Ratio Sodium 137 Potassium 4.7 Chloride 105 Carbon Dioxide 27 Anion Gap 5.0 BUN 22 H Creatinine 7.20 H* Est Cr Clr Drug Dosing 15.0 Est GFR ( Amer) 9.4 Est GFR (Non-Af Amer) 8.1 BUN/Creatinine Ratio 3.0 L Glucose 180 H POC Glucose 223 H Estimat Average Glucose 169 Hemoglobin A1c 7.5 H Calcium 8.0 L Phosphorus Magnesium 2.1 Total Bilirubin 0.3 AST 9 L ALT 14 Alkaline Phosphatase 68 Troponin I 0.017 Total Protein 6.4 Albumin 2.3 L Globulin 4.1 H Albumin/Globulin Ratio 0.6 L Triglycerides Cholesterol LDL Cholesterol, Calc VLDL Cholesterol, Calc HDL Cholesterol Cholesterol/HDL Ratio Urine Color Urine Appearance Urine pH Ur Specific [place] Urine Protein Urine Glucose (UA) Urine Ketones Urine Blood Urine Nitrite Urine Bilirubin Urine Urobilinogen Ur Leukocyte Esterase Urine WBC (Auto) Urine RBC (Auto) U Hyaline Cast (Auto) U Epithel Cells (Auto) Urine Bacteria (Auto) Ur Renal Epithelial Cell Nasal Screen MRSA (PCR) 12/23/18 12/24/18 12/24/18 20:43 07:12 07:12 WBC 7.07 RBC 3.30 L Hgb 9.7 L Hct 29.5 L MCV 89.4 MCH 29.4 MCHC 32.9 RDW Std Deviation 49.1 H RDW Coeff of Gomez 15.2 H Plt Count 233 MPV 9.6 Immature Gran % (Auto) 0.1 Neut % (Auto) 75.3 Lymph % (Auto) 17.7 [place] % (Auto) 5.4 Eos % (Auto) 1.1 Baso % (Auto) 0.4 Immature Gran # (Auto) 0.01 Neut # (Auto) 5.32 Lymph # (Auto) 1.25 [place] # (Auto) 0.38 Eos # (Auto) 0.08 Baso # (Auto) 0.03 PT 20.5 H POC INR INR 2.1 H APTT PTT Ratio Sodium Potassium Chloride Carbon Dioxide Anion Gap BUN Creatinine Est Cr Clr Drug Dosing Est GFR ( Amer) Est GFR (Non-Af Amer) BUN/Creatinine Ratio Glucose POC Glucose Estimat Average Glucose Hemoglobin A1c Calcium Phosphorus Magnesium Total Bilirubin AST ALT Alkaline Phosphatase Troponin I Total Protein Albumin Globulin Albumin/Globulin Ratio Triglycerides Cholesterol LDL Cholesterol, Calc VLDL Cholesterol, Calc HDL Cholesterol Cholesterol/HDL Ratio Urine Color Yellow Urine Appearance Clear Urine pH 7.5 Ur Specific [place] 1.042 H Urine Protein 4+ H Urine Glucose (UA) 3+ H Urine Ketones Negative Urine Blood Trace H Urine Nitrite Negative Urine Bilirubin Negative Urine Urobilinogen Negative Ur Leukocyte Esterase Negative Urine WBC (Auto) 5-10 H Urine RBC (Auto) 10-30 H U Hyaline Cast (Auto) 5-10 H U Epithel Cells (Auto) >30 H Urine Bacteria (Auto) Negative Ur Renal Epithelial Cell 5-10 H Nasal Screen MRSA (PCR) 12/24/18 12/24/18 12/24/18 07:12 07:16 Unknown WBC RBC Hgb Hct MCV MCH MCHC RDW Std Deviation RDW Coeff of Gomez Plt Count MPV Immature Gran % (Auto) Neut % (Auto) Lymph % (Auto) [place] % (Auto) Eos % (Auto) Baso % (Auto) Immature Gran # (Auto) Neut # (Auto) Lymph # (Auto) [place] # (Auto) Eos # (Auto) Baso # (Auto) PT POC INR INR APTT PTT Ratio Sodium 140 Potassium 4.5 Chloride 108 H Carbon Dioxide 24 Anion Gap 8.0 BUN 28 H Creatinine 8.20 H* D Est Cr Clr Drug Dosing 13.1 Est GFR ( Amer) 8.1 Est GFR (Non-Af Amer) 7.0 BUN/Creatinine Ratio 3.4 L Glucose 85 POC Glucose 95 Estimat Average Glucose Hemoglobin A1c Calcium 7.8 L Phosphorus 4.9 Magnesium 2.1 Total Bilirubin AST ALT Alkaline Phosphatase Troponin I Total Protein Albumin Globulin Albumin/Globulin Ratio Triglycerides 136 Cholesterol 149 LDL Cholesterol, Calc 82 VLDL Cholesterol, Calc 27 HDL Cholesterol 40 Cholesterol/HDL Ratio 4 Urine Color Urine Appearance Urine pH Ur Specific [place] Urine Protein Urine Glucose (UA) Urine Ketones Urine Blood Urine Nitrite Urine Bilirubin Urine Urobilinogen Ur Leukocyte Esterase Urine WBC (Auto) Urine RBC (Auto) U Hyaline Cast (Auto) U Epithel Cells (Auto) Urine Bacteria (Auto) Ur Renal Epithelial Cell Nasal Screen MRSA (PCR) Negative
[2018-12-24] MEDS: WARFARIN SOD 5 MG TAB PO SCH (16:16)
--- NOTE | 2018-12-24 18:22 | CT Scan Report ---
CT head/brain wo con CLINICAL HISTORY: 48 years-old Male presenting with Admitted because of obstruction, complaint above right side numbness again, want to see any acute changes. TECHNIQUE: Multidetector CT imaging of the head was performed without the use of intravenous contrast . IV contrast: None. One or more dose lowering techniques were used consistent with the principles of ALARA (as low as reasonably achievable), including automatic exposure control, mA or kV adjustment t o individual patient size, and/or use of iterative reconstruction. COMPARISON: 12/23/2018. CT DOSE (mGy.cm): The estimated cumulative dose is 638.56 mGycm. FINDINGS: Cathead Worker topogram: Unremarkable. Ventricles and sulci normal in size. No hemorrhage. Brain parenchyma normal in appearance with preser angel tompkins-white differentiation. No acute territorial infarct. No mass effect or midline shift. No ext ra-axial fluid collection. Paranasal sinuses and mastoid air cells clear. Calvarium intact. IMPRESSION: 1. No acute intracranial abnormality. Electronically signed by: Rosalio August M.D. 12/24/2018 6:21 PM
[2018-12-24 18:46] LABS: Folate (Folic Acid) 15.48 ng/ml (>5.38)
[2018-12-24] MEDS: ASPIRIN 81 MG ECTAB PO SCH (19:00)
[2018-12-24 19:30] LABS: Albumin Globulin Ratio 0.5 (0.9-2); Albumin Level 2.1 gm/dl (3.4-5.0); BUN Creatinine Ratio 2.6 (10-20); Bilirubin,Total 0.3 mg/dl (0.2-1); Calcium 7.3 mg/dl (8.5-10.1); Creatinine Clr Calc Pharmacy 21.2 ml/min; Est GFR (African American) 14.7; Est GFR (Non-African American) 12.7; Globulin 4.1 gm/dl (2.5-4.0); Magnesium 1.9 mg/dl (1.8-2.4); Phosphorus 3.3 mg/dl (2.5-4.9); Potassium 4.3 mmol/L (3.5-5.1); Total Protein 6.2 gm/dl (6.4-8.2)
[2018-12-24] MEDS: ROSUVASTATIN CALCIUM 20 MG TAB PO SCH (21:38)
[2018-12-24] MEDS: INSULIN GLARGINE SOLOSTAR 100 UNITS/ML 3 ML PEN SQ SCH (21:39)
[2018-12-24] MEDS: PRAMIPEXOLE DIHYDROCHLO 0.25 MG TAB PO SCH (21:40)
[2018-12-25 05:46] LABS: Hematocrit (blood only) 29.8 % (42-52); Hemoglobin 9.9 g/dL (14.0-18.0); Mean Corpuscular Hgb Conc 33.2 g/dL (32-36); Mean Corpuscular Volume 88.7 fL (80-100); Mean Platelet Volume 8.8 fL (7.4-10.4); Platelet Count 185 K/uL (130-400); RDW Coefficient of Variation 15.3 % (11.5-14.5); RDW Standard Deviation 49.2 fL (36.4-46.3); Red Blood Count 3.36 M/uL (4.7-6.1); White Blood Count 6.43 K/uL (4.8-10.8)
[2018-12-25 05:55] LABS: INR 2.8 (0.9-1.1); Prothrombin Time 26.7 Seconds (9.0-12.0)
[2018-12-25 06:21] LABS: BUN Creatinine Ratio 2.9 (10-20); Calcium 7.6 mg/dl (8.5-10.1); Creatinine Clr Calc Pharmacy 17.4 ml/min; Est GFR (African American) 11.3; Est GFR (Non-African American) 9.7; Magnesium 1.9 mg/dl (1.8-2.4); Potassium 4.8 mmol/L (3.5-5.1)
[2018-12-25] MEDS: CHECK CLONIDINE PATCH PLACEMENT SCH ×4 (07:39→23:35)
[2018-12-25] MEDS: NEPHROCAPS PO SCH (07:41)
[2018-12-25] MEDS: METOCLOPRAMIDE HCL 5 MG TABLET PO SCH (07:41)
[2018-12-25] MEDS: CARVEDILOL 6.25 MG TAB PO SCH (07:41)
[2018-12-25] MEDS: PANTOprazole 40 MG TAB PO SCH (07:41)
[2018-12-25] MEDS: SEVELAMER HCL 800 MG TABLET PO SCH ×3 (07:42→16:41)
[2018-12-25] MEDS: SERTRALINE HCL 100 MG TABLET PO SCH (07:42)
[2018-12-25] MEDS: VALSARTAN 80 MG TAB PO SCH (07:42)
[2018-12-25] MEDS: HydrALAZINE 10 MG TAB PO SCH ×3 (07:43→20:51)
[2018-12-25] MEDS: ASPIRIN 81 MG ECTAB PO SCH (07:44)
[2018-12-25] MEDS: INSULIN ASPART 100 UNITS/ML 3 ML PEN SC SCH ×4 (07:49→20:59)
--- NOTE | 2018-12-25 08:15 | Neurology Consultation ---
Date of Consultation December 25, 2018 Assessment & Plan (1) Stroke-like symptoms: The patient has had 3 episodes of the transient right-sided dysesthesias/numbness and heaviness/weakness including face arm and leg. Although these episodes were fairly short (about 15 minutes) they were stereoty ped and suggest TIAs from small vessel ischemic disease. There were no headaches or alterations in consciousness and I doubt migraine variant or seizures. The etiology of this is likely his longstanding hypertension and diabetes. He already has mild to moderate old small vessel ischemic disease somewhat advanced for age but not considering his longstanding diabetes and hypertension. Review of his MRI correlated with this history shows no concerns for demyelinating disease or vasculitis. The patient is already on warfarin for DVT prophylaxis and emboli prevention (history of pulmonary emboli) but this will not protect him from small vessel ischemic disease. Risk factors for small vessel ischemic disease include longstanding hypertension (not adequately controlled currently), longstanding diabetes resulting in retinopathy, nephropathy, and peripheral neuropathy. There is a history of dyslipidemia but his lipids are quite controlled on the current statin doses. He is a former cigarette smoker. (2) HTN (hypertension): Hypertension is not adequately controlled currently (3) DM type 2 (diabetes mellitus, type 2): Longstanding insulin-dependent diabetes with end-stage renal disease on dialysis. (4) Polyneuropathy: Patient has evidence of peripheral neuropathy as noted by sensory deficits in absent distal reflexes in the lower extremities. This is most likely secondary to diabetes. Recommendations: 1. Continue 81 milligram aspirin tablet daily. 2. Control blood pressure, aiming for a mean arterial pressure of approximately 100. 3. Control glucose as you are doing 4. I see no need, given his parameters comma of high-dose statins. I would keep his statin dose where it is. 5. Increase activity as able 6. I see no need for additional neurologic testing or treatment changes at this time otherwise. Overall, I spent a total of 75 minutes with this case including review of records, review of MR angiography and MRI films, direct evaluation the patient at bedside, and discussion of the case with the patient at bedside, clinical staff, the radiologist as noted above, and Dr. Cruz including differential diagnosis and treatment options. History of Present Illness Reason for Consultation: Patient is a 48-year-old, who I was asked to see the request of Dr. Cruz, for neurologic consultation regarding episodes of numbness and weakness. Requesting Physician: Dr. Cruz Attending Physician: Kenton Cruz MD, PhD, COUNT INCLUDES THE [facility] History of Present Illness Patient has had diabetes for 20 years and he is on insulin. He has longstanding hypertension as well. He has had an UT several years ago and is post 3 vessel coronary artery bypass graft. Patient has had end-stage renal disease from diabetes and has been on hemodialysis 3 times a week for approximately 1 year. He also has diabetic retinopathy post laser surgery and diabetic polyneuropathy with numbness in the feet and post 2 toes surgically removed in the left foot in the past circulation issues. History of depression stable on sertraline. The Patient has never a stroke or TIA in the past and he can recall. He was in [facility] for 3 days for hypertension being discharged December 22 good condition. On the morning of December 23 he woke up feeling well. Somewhere around 1030 he had the onset of numbness and tingling accompanied by some heaviness/weakness in the right upper extremity. Within a few minutes it involved the right face, right-sided body, and right lower extremity. It was a numbness and a bit of tingling and a sense of heaviness/weakness. His speech was unaffected and he had normal mentation with no confusion or word-finding problems. He had no headache or pain, vision issues, or dizziness. There was no incontinence of urine or left-sided symptoms. Whole episode lasted about 15 minutes he believes and then resolved back to normal. About 10 minutes later the same (exact) episode occurred again lasting approximately 15 minutes. His symptoms then resolved. He came to the emergency room December 23 at 1512 hours with a temperature of 36.6, pulse 71 and regular, respiratory rate 18, blood pressure 167/86, and O2 saturation 97 percent. He was tired following these episodes but he felt that in the emergency room his strength and sensation were mostly back to normal. CT scan of the head was unremarkable Chest x-ray was unremarkable Carotid ultrasound was without stenosis or vessel anomalies. CBC showed significant anemia and INR was 2.2 Chem profile was largely unremarkable except for a markedly elevated creatinine. Calcium was low at 7.6 and glucose was 119. Urinalysis was unremarkable Triglycerides were 136, cholesterol 149, LDL 82. MR angiography of the head was normal with no vessel abnormalities or stenoses MRI of the brain showed no acute changes or acute stroke. There was mild to mo derate old small vessel ischemic changes of a nonspecific nature. I reviewed these MRI films with Dr. Alegria, radiologist. There is no MR indication that would suggest demyelinating disease or vasculitis. Around 4-5 in the afternoon on December 24 the patient had another episode of right-sided numbness and heaviness lasting 10-[address] scan of the head again was unremarkable. This morning blood pressure was 188/103. Pulse is normal sinus rhythm in the 70s. Currently, he feels normal with no headache, pain, weakness, numbness, speech, vision, mentation, fatigue or other issues. Allergies Allergy/AdvReac Type Severity Reaction Status Date / Time furosemide [From Lasix] AdvReac Gastrointestinal Unverified 12/23/18 18:16 Upset Home Medications Home Medications Medication Instructions Recorded Confirmed Type B complex-vitamin C-folic acid 1 mg PO DAILY 12/23/18 12/23/18 History [Renal Vitamin] Lactobacillus acidophilus 2 tabs PO DAILY 12/23/18 12/23/18 History acetaminophen [Tylenol] 325 mg PO Q6H PRN 12/23/18 12/23/18 History carvedilol 6.25 mg PO BID 12/23/18 12/23/18 History ergocalciferol (vitamin D2) 5,000 unit PO WK 12/23/18 12/23/18 History hydralazine 10 mg PO TID 12/23/18 12/23/18 History insulin aspart U-100 3 unit SUBCUT TID 12/23/18 12/23/18 History insulin glargine [Lantus U-100 25 unit SUBCUT HS 12/23/18 12/23/18 History Insulin] metoclopramide HCl 5 mg PO DAILY 12/23/18 12/23/18 History nitroglycerin 0.4 mg SUBLINGUAL DIRECTED PRN 12/23/18 12/23/18 History pantoprazole 40 mg PO DAILY 12/23/18 12/23/18 History pramipexole 0.125 mg PO HS 12/23/18 12/23/18 History rosuvastatin 40 mg PO HS 12/23/18 12/23/18 History sertraline [Zoloft] 100 mg PO DAILY 12/23/18 12/23/18 History sevelamer carbonate 800 mg PO TID 12/23/18 12/23/18 History warfarin [Coumadin] 5 mg PO DAILY 12/23/18 12/23/18 History Patient History Medical History Myocardial infarct DM type 2 (diabetes mellitus, type 2) GERD (gastroesophageal reflux disease) HTN (hypertension) Hyperlipidemia Hypothyroid Pulmonary emboli CKD (chronic kidney disease) Depression Dialysis patient Surgical History History of hernia surgery Hx of cardiac catheterization Hx of cholecystectomy Family History Father , age 67 with stomach cancer Stomach cancer Mother , age 65 with UT Diabetes Hypertension Myocardial infarct Social History Communication Ability: Effective Beliefs That Will Affect Care: None Current Living Situation: Alone current occupational status: previously employed and disabled Other Information That Helps Us Care for You: No other: Former warehouse assembly worker and base remover. Disability X 2 years. [place] X 10yrs Feels Safe at Home: Yes Safety Concerns: Feels Safe At This Time Smoking Status: Former smoker Hx Alcohol Use: Yes (Quit all alcohol usage four years ago) Hx Substance Use: No Review of Systems Constitutional: no fever and no fatigue Eyes: no diplopia, no eye pain and no worsening vision Ear, Nose, Mouth, Throat: no ear pain, no tinnitus, no hearing loss and no dysphagia Respiratory: no cough and no dyspnea Cardiovascular: no chest pain, no dyspnea and no palpitations Gastrointestinal: no abdominal pain, no nausea and no vomiting Genitourinary (Male): no dysuria, no urinary frequency and no urinary incontinence Musculoskeletal: no back pain, no neck pain, no radicular pain, no myalgia, no muscle weakness and no muscle atrophy Integumentary: no rash and no lesions Neurologic: no gait abnormality, no falls, no localized weakness, no generalized weakness, no tingling, no numbness, no tremor(s), no abnormal movements, no dizziness, no headache(s), no abnormal speech, no behavioral changes, no confusion and no memory loss Psychiatric: + depression; no abnormal sleep pattern, no anxiety, no difficulty concentrating, no confusion and no hallucinations Endocrine: no fatigue and no flushing Hematologic / Lymphatic: no easy bleeding and no easy bruising Allergy / Immunological: no urticaria Physical Exam Vital Signs (Past 24 Hours): Last Vital Signs Temp 36.7 C 12/25/18 07:37 Pulse 76 12/25/18 07:37 Resp 20 12/25/18 07:37 BP 188/103 H 12/25/18 07:37 Pulse Ox 97 12/25/18 07:37 Physical Exam: The patient is right-handed. The patient is awake, alert, and attentive. Speech is normal without any aphasia or dysarthria. Mentation and thought processes are intact, with full orientation and normal fund of knowledge. Attention and concentration are normal. Mood and affect are normal and appropriate. General appearance and grooming are normal. Short and long-term memory are intact. The discs are sharp with positive venous pulsations bilaterally. There are no exudates, hemorrhages, or blood vessel changes seen. Pupils are 3 mm bilaterally and reactive to light. Extraocular eye muscles are intact without nystagmus. Visual acuity and visual willams seem normal grossly to confrontation. There are no deficits to sensation in the face in all 3 distributions of the fifth cranial nerve bilaterally. Corneal reflexes are positive bilaterally. Facial strength and symmetry was normal bilaterally. Hearing seems intact grossly to voice and finger rub bilaterally. Palate moves well without asymmetry. There is normal sternocleidomastoid and trapezius (shoulder shrug) strength bilaterally. Tongue is midline with good strength bilaterally. Neck has a full range of motion without discomfort. There are no cervical bruits bilaterally. There are no cranial or ocular bruits. Heart is without murmur. There is a regular rhythm and rate. Cervical, thoracic, and lumbar spine are nontender to palpation. Gait is narrow based and cautious. He limps favoring the left hip. Stance is normal eyes open or closed. With outstretched arms there is no drift. There are no resting, postural, or action tremors. There is no ataxia with finger to nose testing. There is good facility in the hands. No other abnormal involuntary movements are noted. Motor strength is 5/5 diffusely in the arms bilaterally including deltoids, biceps, triceps, brachioradialis, wrist flexors and extensors, recreation activities coordinator, and intrinsic hand muscles. Motor strength is 5/5 diffusely in the legs bilaterally including hip flexors, quadriceps, hamstrings, gastrocnemius, tibialis anterior, tibialis posterior, and Peroneii muscles bilaterally. Toe extensors are normal and there is good bulk in the extensor digitorum brevis muscles bilaterally. The limbs have good tone without rigidity or spasticity. There is no atrophy noted in the muscles. Muscle bulk is normal, there is no tenderness to palpation, no myotonia to percussion, and no fasciculations seen. Sensory examination reveals decreased sensation to pin and touch to just above the ankles bilaterally. Hands are spared. Reflexes are 1/4 in the biceps, triceps, and brachioradialis tendons bilaterally. Quadriceps and Achilles tendon reflexes are absent bilaterally. Toes are downgoing with plantar stimulation on the right and neutral on the left. Peripheral pulses are present and of normal quality distally in all 4 limbs. There is no peripheral edema noted in the limbs. Results & Data Diagnostic Findings [facility], [place] [phone] Magnetic Resonance Report Patient: JESUS ALBERTO SAENZAdmit Date: 12/23/18 MR#: [id number]: [address] Acct ID:[id number]: [address] Date: 1970ty Zip: [place] [id number] Age: 48Location: 2S Sex: M Room/Bed: [facility] Att Phy: Moon Francisco, DODiagnosis: STROKE-LIKE SYMPTOMS Belle Phy: PCP,NO Service Date: 12/23/18 Fam Phy: Interpreting Phy: Willy Guzmán MD Admit Phy: Moon Francisco DO Ordering Phy: Moon Francisco DO cc: ~ Brain MRI WITHOUT CONTRAST HISTORY: Stroke like symptoms. TECHNIQUE: Multiplanar multisequence MRI of the brain was performed without the use of contrast. COMPARISON STUDY: None. FINDINGS: There are no areas of restricted diffusion to suggest acute infarction. The midline structures are intact. The paranasal sinuses are clear. The mastoid air cells are clear. The ventricles and sulci are within normal limits for age. There is no mass, hematoma, midline shift. The major vascular flow-voids at the skull base are well maintained. Patchy periventricular white matter T2 hyperintensity is noted. This is greater than expected for age. This most pronounced within the bilateral parietal lobes, left greater than right. There are also a few punctate T2 hyperintense foci seen within the left wanda, right basal ganglia, and bilateral posterior thalami. This could be due to additional foci of demyelination or old lacunar infarcts. IMPRESSION: 1. No acute infarct. 2. Patchy periventricular white matter T2 hyperintensity which is greater than expected for age. This may represent a demyelinating disease such as multiple sclerosis. Lyme's disease or a vasculitis could also have a similar appearance. 3. A few punctate T2 hyperintense foci within the left wanda, right basal ganglia, and bilateral posterior thalami. This could also be due to foci of demyelination or old lacunar infarcts. 4. A follow-up contrast enhanced brain MRI is recommended for further evaluation. Electronically signed by: Willy Guzmán M.D. 12/23/2018 11:32 PM
--- NOTE | 2018-12-25 10:28 | Nephrology Progress Note ---
Date of Service December 25, 2018 Assessment & Plan (1) ESRD (end stage renal disease) on dialysis: -- ESRD due to diabetic nephropathy. Patient dialyzes MWF at [facility]. EDW has been reduced to 94.8 kg -- Volume status and electrolyte balance are acceptable at this time. Will s chedule next HD for am (2) HTN (hypertension): -- BP remains elevated despite UF w/ HD -- Continue Carvedilol, Valsartan, Hydralazine and Catapress patch -- Start Imdur 30 mg daily and monitor. Target SBP 140 - 160 mmHG pre HD and 120 - 140 mmHG post HD (3) Stroke-like symptoms: -- Imaging studies reviewed today. Suspect changes related to HTN. -- Neurology recommendations reviewed this am. Will adjust BP medications as outlined above (4) Peripheral vascular disease: -- Patient has ulcerative lesion on the dorsum of his R foot. Recommend consultation w/ wound care (5) DM type 2 (diabetes mellitus, type 2): Subjective Mr. Vieira was seen & examined in his hospital room this morning. He was dialyzed yesterday for 4 hours and developed hand cramping at the end of treatment. His post treatment weight was 94.8 kg. He currently denies ARMENTA or focal neurologic weakness. Eyes: no problem reported Respiratory: no dyspnea Cardiovascular: no chest pain Physical Exam Vital Signs (Past 24 Hours): Last Vital Signs Temp 36.7 C 12/25/18 07:37 Pulse 76 12/25/18 07:37 Resp 20 12/25/18 07:37 BP 188/103 H 12/25/18 07:37 Pulse Ox 97 12/25/18 07:37 Eyes: PERRL, conjunctivae normal, anicteric sclerae Neck: trachea midline, no thyromegaly Respiratory: normal respiratory effort, lungs clear to auscultation Cardiovascular: RRR, no murmur, no edema Gastrointestinal (Abdomen): normal bowel sounds, soft, nontender, no hepatosplenomegaly Results & Data Laboratory Results Laboratory Tests 12/25/18 12/25/18 05:36 05:36 WBC 6.43 Hgb 9.9 L Hct 29.8 L Plt Count 185 Sodium 139 Potassium 4.8 Chloride 107 Carbon Dioxide 25 BUN 18 Creatinine 6.21 H* D Glucose 119 H
[2018-12-25] MEDS ORDERED: ISOSORBIDE MONO EXTENDED REL 30 MG TABCR PO ONE (11:10)
[2018-12-25] MEDS: WARFARIN SOD 7.5 MG TAB PO SCH (15:52)
[2018-12-25] MEDS ORDERED: CARVEDILOL 3.125 MG TAB PO ONE (15:59)
--- NOTE | 2018-12-25 16:09 | Hospitalist Progress Note ---
Date of Service December 25, 2018 Assessment & Plan (1) Stroke-like symptoms: (2) CKD (chronic kidney disease): (3) Pulmonary emboli: (4) Hypothyroid: (5) Hyperlipidemia: (6) HTN (hypertension): (7) DM type 2 (diabetes mellitus, type 2): (8) Myocardial infarct: (9) GERD (gastroesophageal reflux disease): (10) DVT prophylaxis: 48-year-old male with end-stage renal disease on dialysis admitted because of strokelike symptoms, per note: c/o sudden onset R sided weakness. Pt was d/c'd from [facility] on the day of admission. He had been admitted there for 3 days for uncontrolled HTN. Pt had been at HD on 12/20. His usual HD days are //, but he missed his Saturday session due to feeling generally unwell. He was at HD and states his BP was 220/201. likely TIA with right-sided weakness and tingling or numbness, frequent recurring, during the hospitalization Differential diagnosis is possible related to accelerated hypertension with elevated SBP CT head: neg for acute MRI/MRA unremarkable Carotid Doppler ultrasound was unremarkable MRI: Per report 1. No acute infarct. 2. Patchy periventricular white matter T2 hyperintensity which is greater than expected for age. This may represent a demyelinating disease such as multiple sclerosis. Lyme's disease or a vasculitis could also have a similar appearance. 3. A few punctate T2 hyperintense foci within the left wanda, right basal ganglia, and bilateral posterior thalami. This could also be due to foci of demyelination or old lacunar infarcts. 4. A follow-up contrast enhanced brain MRI is recommended for further evaluation. Discussed with neurologist, possible TIA, Had an ECHO on admission, EF 50-55%, Continue Coumadin and aspirin, we feel aspirin is good enough without the need of Plavix because patient was not on aspirin at home Will optimize stroke secondary prevention parameters, such as optimize blood pressure control (SBP <130), target for LDL less than 100 and optimize blood glucose control target A1c less than 7, PT OT eval and rehab if need End-stage renal disease on dialysis M/W/F History of pulmonary emboli: Continue coumadin Takes 5mg M/W//Peck, 7.5mg others Hypothyroidism, hypertension, diabetic type II, myocardial infarction, stable continue current care GERD, continue current care DVT prophylaxis: Therapeutic on coumadin Subjective Yesterday patient was reports several episodes of right arm, and right face numbness and tingling, today he reported one episode of this symptom, report generally tired Denies facial droop , local weakness, Denies cough sputum shortness of breath Denies nausea vomiting abdominal pain diarrhea constipation Denies dysuria urgency and frequency's, Denies skin rashes, Physical Exam Vital Signs (Past 24 Hours): Last Vital Signs Temp 36.3 C L 12/25/18 15:39 Pulse 71 12/25/18 15:39 Resp 21 12/25/18 15:39 BP 172/93 H 12/25/18 15:39 Pulse Ox 97 12/25/18 15:39 Physical Exam: General Appearance: Looks ok, otherwise WD/WN, no apparent distress, Eyes: normal inspection, PERRL, EOMI, sclerae normal ENT: normal ENT inspection, pharynx normal Neck: supple, no adenopathy, no JVD, no carotid bruits, trachea midline Respiratory/Chest: chest non-tender, normal breath sounds, no accessory muscle use, breath sounds, rales, wheezing Cardiovascular: regular rate, rhythm, no JVD, no murmur Abdomen: normal bowel sounds, non tender, soft, no organomegaly, Extremities: normal range of motion, non-tender, normal inspection, no pedal edema, no calf tenderness, normal capillary refill, joint has no limited range of motion, capillary refill is normal, no cyanosis clubbing Neurologic/Psychiatric: precision honer II-XII nml as tested, no motor/sensory deficits, alert, normal mood/affect, oriented x 3 Skin: normal color, warm/dry, no rash Lymphatic: no adenopathy Results & Data Laboratory Results Laboratory Results - last 24 hr 12/24/18 12/24/18 12/24/18 16:01 16:08 16:09 WBC RBC Hgb Hct MCV MCH MCHC RDW Std Deviation RDW Coeff of Gomez Plt Count MPV PT INR Sodium Potassium Chloride Carbon Dioxide Anion Gap BUN Creatinine Est Cr Clr Drug Dosing Est GFR ( Amer) Est GFR (Non-Af Amer) BUN/Creatinine Ratio Glucose POC Glucose 69 L* 70 Calcium Phosphorus 2.7 D Magnesium Total Bilirubin AST ALT Alkaline Phosphatase Total Protein Albumin Globulin Albumin/Globulin Ratio Vitamin B12 Folate 12/24/18 12/24/1812/24/19 17:31 18:01 18:43 WBC RBC Hgb Hct MCV MCH MCHC RDW Std Deviation RDW Coeff of Gomez Plt Count MPV PT INR Sodium 135 L Potassium 4.3 Chloride 104 Carbon Dioxide 26 Anion Gap 5.0 BUN 13 D Creatinine 5.00 H* D Est Cr Clr Drug Dosing 21.2 Est GFR ( Amer) 14.7 Est GFR (Non-Af Amer) 12.7 BUN/Creatinine Ratio 2.6 L Glucose 155 H POC Glucose 154 H Calcium 7.3 L Phosphorus 3.3 Magnesium 1.9 Total Bilirubin 0.3 AST 11 L ALT 12 Alkaline Phosphatase 68 Total Protein 6.2 L Albumin 2.1 L Globulin 4.1 H Albumin/Globulin Ratio 0.5 L Vitamin B12 437 Folate 15.48 12/24/18 12/24/18 12/25/18 20:25 21:36 05:36 WBC RBC Hgb Hct MCV MCH MCHC RDW Std Deviation RDW Coeff of Gomez Plt Count MPV PT 26.7 H INR 2.8 H Sodium Potassium Chloride Carbon Dioxide Anion Gap BUN Creatinine Est Cr Clr Drug Dosing Est GFR ( Amer) Est GFR (Non-Af Amer) BUN/Creatinine Ratio Glucose POC Glucose 132 H 105 H Calcium Phosphorus Magnesium Total Bilirubin AST ALT Alkaline Phosphatase Total Protein Albumin Globulin Albumin/Globulin Ratio Vitamin B12 Folate 12/25/18 12/25/18 12/25/18 05:36 05:36 07:02 WBC 6.43 RBC 3.36 L Hgb 9.9 L Hct 29.8 L MCV 88.7 MCH 29.5 MCHC 33.2 RDW Std Deviation 49.2 H RDW Coeff of Gomez 15.3 H Plt Count 185 MPV 8.8 PT INR Sodium 139 Potassium 4.8 Chloride 107 Carbon Dioxide 25 Anion Gap 7.0 BUN 18 Creatinine 6.21 H* D Est Cr Clr Drug Dosing 17.4 Est GFR ( Amer) 11.3 Est GFR (Non-Af Amer) 9.7 BUN/Creatinine Ratio 2.9 L Glucose 119 H POC Glucose 127 H Calcium 7.6 L Phosphorus Magnesium 1.9 Total Bilirubin AST ALT Alkaline Phosphatase Total Protein Albumin Globulin Albumin/Globulin Ratio Vitamin B12 Folate 12/25/18 11:12 WBC RBC Hgb Hct MCV MCH MCHC RDW Std Deviation RDW Coeff of Gomez Plt Count MPV PT INR Sodium Potassium Chloride Carbon Dioxide Anion Gap BUN Creatinine Est Cr Clr Drug Dosing Est GFR ( Amer) Est GFR (Non-Af Amer) BUN/Creatinine Ratio Glucose POC Glucose 157 H Calcium Phosphorus Magnesium Total Bilirubin AST ALT Alkaline Phosphatase Total Protein Albumin Globulin Albumin/Globulin Ratio Vitamin B12 Folate
[2018-12-25] MEDS: CARVEDILOL 3.125 MG TAB PO SCH (20:52)
[2018-12-25] MEDS: PRAMIPEXOLE DIHYDROCHLO 0.25 MG TAB PO SCH (20:53)
[2018-12-25] MEDS: INSULIN GLARGINE SOLOSTAR 100 UNITS/ML 3 ML PEN SQ SCH (20:55)
[2018-12-25] MEDS: ROSUVASTATIN CALCIUM 20 MG TAB PO SCH (20:55)
[2018-12-26] MEDS ORDERED: SODIUM CHLORIDE 0.9% 1000ML 1,000 ML IV PRN (07:00)
[2018-12-26 07:34] LABS: Hemoglobin 9.6 g/dL (14.0-18.0); Mean Corpuscular Hgb Conc 33.1 g/dL (32-36); Mean Platelet Volume 9.2 fL (7.4-10.4); Platelet Count 208 K/uL (130-400); RDW Coefficient of Variation 15.2 % (11.5-14.5); RDW Standard Deviation 49.7 fL (36.4-46.3); Red Blood Count 3.26 M/uL (4.7-6.1); White Blood Count 6.56 K/uL (4.8-10.8)
[2018-12-26 07:41] LABS: INR 2.3 (0.9-1.1)
[2018-12-26] MEDS: SEVELAMER HCL 800 MG TABLET PO SCH ×2 (07:43→12:54)
[2018-12-26] MEDS: CHECK CLONIDINE PATCH PLACEMENT SCH ×2 (07:44→16:28)
[2018-12-26 08:28] LABS: BUN Creatinine Ratio 3.5 (10-20); Calcium 7.9 mg/dl (8.5-10.1); Creatinine Clr Calc Pharmacy 12.6 ml/min; Est GFR (African American) 7.8; Est GFR (Non-African American) 6.7; Potassium 5.2 mmol/L (3.5-5.1)
[2018-12-26] MEDS: INSULIN ASPART 100 UNITS/ML 3 ML PEN SC SCH ×2 (08:33→13:56)
[2018-12-26] MEDS ORDERED: ISOSORBIDE MONO EXTENDED REL 30 MG TABCR PO SCH (09:00)
--- NOTE | 2018-12-26 10:05 | Nephrology Progress Note ---
Date of Service December 26, 2018 Assessment & Plan (1) ESRD (end stage renal disease) on dialysis: -- ESRD due to diabetic nephropathy. Patient dialyzes MWF at [facility]. EDW has been reduced to 94.8 kg -- Will provide HD today. Orders have been entered into EMR and HD RN notifi ed (2) HTN (hypertension): -- BP remains elevated despite UF w/ HD -- Continue Carvedilol, Valsartan, Hydralazine and Catapress patch -- Will increase Imdur to 60 mg daily and monitor. Target SBP 140 - 160 mmHG pre HD and 120 - 140 mmHG post HD (3) Stroke-like symptoms: -- Imaging studies reviewed today. Suspect changes related to HTN. -- Neurologic symptoms have resolved (4) Peripheral vascular disease: -- Patient has ulcerative lesion on the dorsum of his R foot. Recommend consultation w/ wound care (5) DM type 2 (diabetes mellitus, type 2): Subjective Mr. Vieira was seen & examined in his hospital room this morning. He currently denies ARMENTA or focal neurologic weakness. EDW has been adjusted to 95kg. Blood pressure remains elevated Physical Exam Vital Signs (Past 24 Hours): Last Vital Signs Temp 36.6 C 12/26/18 07:35 Pulse 67 12/26/18 07:35 Resp 16 12/26/18 07:35 BP 181/97 H 12/26/18 07:35 Pulse Ox 97 12/26/18 07:35 Eyes: PERRL, conjunctivae normal, anicteric sclerae Neck: trachea midline, no thyromegaly (R IJ THC w/ clean dry dressing in place) Respiratory: normal respiratory effort, lungs clear to auscultation Cardiovascular: RRR, no murmur, no edema Gastrointestinal (Abdomen): normal bowel sounds, soft, nontender, no hepatosplenomegaly
[2018-12-26] MEDS: PANTOprazole 40 MG TAB PO SCH (12:50)
[2018-12-26] MEDS: SERTRALINE HCL 100 MG TABLET PO SCH (12:50)
[2018-12-26] MEDS: METOCLOPRAMIDE HCL 5 MG TABLET PO SCH (12:50)
[2018-12-26] MEDS: HydrALAZINE TAB 50 MG TAB PO SCH ×2 (12:51→15:15)
[2018-12-26] MEDS: CARVEDILOL 3.125 MG TAB PO SCH (12:52)
[2018-12-26] MEDS: VALSARTAN 80 MG TAB PO SCH (12:53)
[2018-12-26] MEDS: ASPIRIN 81 MG ECTAB PO SCH (12:55)
[2018-12-26] MEDS: NEPHROCAPS PO SCH (12:55)
[2018-12-26] MEDS ORDERED: STROKE PATIENT DISCHARGE STA (14:58)
--- NOTE | 2018-12-26 15:02 | Discharge Summary ---
Date of Service December 26, 2018 Admission HPI Per Admitting Provider 48 y/o M c/o sudden onset R sided n/t and weakness. Pt was d[facility]c'd from [facility] earlier today. He had been admitted there for 3 days for uncontrolled HTN. Pt had been at HD on 12/20. His usual HD days are //, but he missed his Saturday session due to feeling generally unwell. He was at HD and states his BP was 220/201. He states that this happens frequently when he first starts HD but that as he has his tx it will go back to a more reasonable level. It did not and pt developed chest pain, so he was sent to the ED at [facility] after he completed HD. Per records from [facility], during his admission, pt had an ECHO that showed EF 50-55%. He was started on clonidine patch and valsartan. Both pt and records state that on d/c pt was doing well. His BP was WNL and he felt fine to go home. Pt states that he left and drove to home and then the grocery and had no issues. Later, he noted sudden onset of R sided n/t and weakness. He has peripheral neuropathy and therefore some ambulation issues at baseline, however this was different. He could not move his R side to walk at all. He felt very weak. He called his cousin who is a nurse. She came over to his home, but pt's sx had resolved spontaneously. While she was there, these sx returned and it was decided he should come to the ED. He has never had these sx prior. While in the ED, pt's sx resolved. He states that he feels at his usual with the exception of his R 5th finger is still n/t. He was able to ambulate without issue other than his usual dysfunction related to his PN. Pt denies headache or vision changes. Pt denies fever, SOB, chest pain, abd pain, n/v. Pt states he has diarrhea at baseline due to the amount of pills he takes. Pt has LE swelling and pain related to his PN at baseline. Pt states prior to admission as [facility] he was taking carvedilol and hydralazine for his HTN. He had been on amlodipine prior, but this was [facility] due to [facility]. Principal Diagnosis no Discharge Data Allergies Allergy/AdvReac Type Severity Reaction Status Date / Time furosemide [From Lasix] AdvReac Gastrointestinal Unverified 12/23/18 18:16 Upset Consultations 12/23/18 17:12 ED Decision to Admit Stat 12/23/18 19:18 Consult Case Management - Discharge Planning Routine Consult Nephrology Stat 12/24/18 17:13 Consult Neurology Routine Ordered Studies 12/23/18 15:41 CT head/brain wo con Stat 12/23/18 19:18 MR angio head wo con Urgent MR brain wo con Routine 12/23/18 19:47 US carotid doppler BI Urgent 12/24/18 17:56 CT head/brain wo con Stat Hospital Course (1) Stroke-like symptoms: (2) CKD (chronic kidney disease): (3) Pulmonary emboli: Continue coumadin Takes 5mg M/W//Peck, 7.5mg others (4) Hypothyroid: (5) Hyperlipidemia: (6) HTN (hypertension): (7) DM type 2 (diabetes mellitus, type 2): (8) Myocardial infarct: (9) GERD (gastroesophageal reflux disease): (10) DVT prophylaxis: 48-year-old male with end-stage renal disease on dialysis admitted because of strokelike symptoms, per note: c/o sudden onset R sided weakness. Pt was d/c'd from [facility] on the day of admission. He had been admitted there for 3 days for uncontrolled HTN. Pt had been at HD on 12/20. His usual HD days are //, but he missed his Saturday session due to feeling generally unwell. He was at HD and states his BP was 220/201. likely TIA with right-sided weakness and tingling or numbness, frequent recurring, during the hospitalization Differential diagnosis is possible related to accelerated hypertension with elevated SBP CT head: neg for acute MRI/MRA unremarkable Carotid Doppler ultrasound was unremarkable MRI: Per report 1. No acute infarct. 2. Patchy periventricular white matter T2 hyperintensity which is greater than expected for age. This may represent a demyelinating disease such as multiple sclerosis. Lyme's disease or a vasculitis could also have a similar appearance. 3. A few punctate T2 hyperintense foci within the left wanda, right basal ganglia, and bilateral posterior thalami. This could also be due to foci of demyelination or old lacunar infarcts. 4. A follow-up contrast enhanced brain MRI is recommended for further evaluation. Discussed with neurologist, possible TIA, Had an ECHO on admission, EF 50-55%, Continue Coumadin and aspirin, we feel aspirin is good enough without the need of Plavix because patient was not on aspirin at home Will optimize stroke secondary prevention parameters, such as optimize blood pressure control (SBP <130), target for LDL less than 100 and optimize blood glucose control target A1c less than 7, PT OT eval and rehab if need End-stage renal disease on dialysis M/W/F History of pulmonary emboli: Continue coumadin Takes 5mg M/W/F/Peck, 7.5mg others Hypothyroidism, hypertension, diabetic type II, myocardial infarction, stable continue current care GERD, continue current care DVT prophylaxis: Therapeutic on coumadin Subjective upon discharge No more episodes of right arm, and right face numbness and tingling, dialysis, report generally tired Denies facial droop , local weakness, Denies cough sputum shortness of breath Denies nausea vomiting abdominal pain diarrhea constipation Denies dysuria urgency and frequency's, Denies skin rashes, Physical Exam at discharge: Vital Signs (Past 24 Hours): Last Vital Signs Temp 36.3 C L 12/25/18 15:39 Pulse 71 12/25/18 15:39 Resp 21 12/25/18 15:39 BP 172/93 H 12/25/18 15:39 repeated 161/81 Pulse Ox 97 12/25/18 15:39 General Appearance: Looks ok, otherwise WD/WN, no apparent distress, Eyes: normal inspection, PERRL, EOMI, sclerae normal ENT: normal ENT inspection, pharynx normal Neck: supple, no adenopathy, no JVD, no carotid bruits, trachea midline Respiratory/Chest: chest non-tender, normal breath sounds, no accessory muscle use, breath sounds, rales, wheezing Cardiovascular: regular rate, rhythm, no JVD, no murmur Abdomen: normal bowel sounds, non tender, soft, no organomegaly, Extremities: normal range of motion, non-tender, normal inspection, no pedal edema, joint has no limited range of motion, capillary refill is normal, no cyanosis clubbing Neurologic/Psychiatric: regulatory compliance manager II-XII nml as tested, no motor/sensory deficits, alert, normal mood/affect, oriented x 3 Skin: normal color, warm/dry, no rash Lymphatic: no adenopathy Lab data upon discharge: Laboratory Results - last 24 hr 12/25/18 12/25/18 12/26/18 16:14 20:44 07:15 WBC RBC Hgb Hct MCV MCH MCHC RDW Std Deviation RDW Coeff of Gomez Plt Count MPV PT 22.0 H INR 2.3 H Sodium Potassium Chloride Carbon Dioxide Anion Gap BUN Creatinine Est Cr Clr Drug Dosing Est GFR ( Amer) Est GFR (Non-Af Amer) BUN/Creatinine Ratio Glucose POC Glucose 89 157 H Calcium 12/26/18 12/26/18 12/26/18 07:15 07:15 07:19 WBC 6.56 RBC 3.26 L Hgb 9.6 L Hct 29.0 L MCV 89.0 MCH 29.4 MCHC 33.1 RDW Std Deviation 49.7 H RDW Coeff of Gomez 15.2 H Plt Count 208 MPV 9.2 PT INR Sodium 138 Potassium 5.2 H Chloride 109 H Carbon Dioxide 24 Anion Gap 6.0 BUN 30 H D Creatinine 8.46 H* D Est Cr Clr Drug Dosing 12.6 Est GFR ( Amer) 7.8 Est GFR (Non-Af Amer) 6.7 BUN/Creatinine Ratio 3.5 L Glucose 94 POC Glucose 94 Calcium 7.9 L 12/26/18 12:51 WBC RBC Hgb Hct MCV MCH MCHC RDW Std Deviation RDW Coeff of Gomez Plt Count MPV PT INR Sodium Potassium Chloride Carbon Dioxide Anion Gap BUN Creatinine Est Cr Clr Drug Dosing Est GFR ( Amer) Est GFR (Non-Af Amer) BUN/Creatinine Ratio Glucose POC Glucose 85 Calcium Total Time Total Time Spent Total Time Spent (In Minutes): 35 Total Time Includes: Examination of the Patient, Discharge Planning, Medication Reconciliation and Communication With Other Providers Discharge Plan Discharge Items Patient Disposition: Home - Self-Care Reason For Visit: STROKE-LIKE SYMPTOMS Discharge Diagnosis: 1 Condition: Fair Discharge Goals: Decrease discomfort, Diagnostic testing, Improve disease control, Improve function, Specific goals and Therapeutic intervention Activity: Resume your previous activity Non-emergency contact: Primary Care Provider and Neurologist Call non-emergency contact if: you have any medication questions Follow-up/Referrals: PCP,NO [Primary Care Provider] - Diet: Dialysis Renal, Low Fat and Low Sodium (2gm) Addtl Provider Instructions: you possible have mini stroke, You have accelerated hyper pressure, likely TIA with right-sided weakness and tingling or numbness, you need to check blood pressure 2 time a day, call to PCP if systolic blood pressure more than 200 or diastolic blood pressure more than 100 CT head: neg for acute MRI/MRA unremarkable Carotid Doppler ultrasound was unremarkable You need to follow-up with neurologist in 3-4-week Continue Coumadin and add aspirin, for optimizing stroke secondary prevention you need to optimize blood pressure control (SBP <130), target for LDL less than 100 , optimize blood glucose control target A1c less than 7, You have end-stage renal disease on dialysis M/W/F, you need to continue follow- up with your synthetic gem press operator you need to follow up with your primary care physician in 1 week, - take medication as instructed, never overdose or any misuse, or take with alcohol, because misuse of medicine may cause organ damage or , call me, or your primary care physician if have questions of discharge medicaitons. - call your primary care physician, or go to local emergency room if has any fever/chill, chest pain, shortness of breathing, nausea/vomiting/abdominal pain, facial droop/slurry speech/local weakness, or if has any questions. - fall precaution - diet as instructed - you need to follow up with your subspecialist, such as synthetic gem press operator Prescriptions: New valsartan [Diovan] 80 mg Tablet 320 mg PO QAM 30 Days Qty: 120 RF: 0 aspirin [Ecotrin Low Strength] 81 mg Tablet,Delayed Release (Dr/Ec) 81 mg PO DAILY 30 Days Qty: 30 RF: 0 carvedilol 3.125 mg Tablet 9.375 mg PO BID 30 Days Qty: 180 RF: 0 isosorbide mononitrate 60 mg Tablet Extended Release 24 Hr 60 mg PO QAM 30 Days Qty: 30 RF: 0 hydralazine 50 mg Tablet 50 mg PO TID 3 Days Qty: 9 RF: 0 clonidine 0.3 mg/24 hr Patch Weekly 1 patch Transdermal CQWK Qty: 7 RF: 0 Continued sertraline [Zoloft] 100 mg Tablet 100 mg PO DAILY RF: 0 pantoprazole 40 mg Tablet,Delayed Release (Dr/Ec) 40 mg PO DAILY RF: 0 warfarin [Coumadin] 5 mg Tablet 5 mg PO DAILY RF: 0 pramipexole 0.125 mg Tablet 0.125 mg PO HS RF: 0 nitroglycerin 0.4 mg Tablet, Sublingual 0.4 mg Sublingual DIRECTED PRN (Reason: Chest Pain) RF: 0 acetaminophen [Tylenol] 325 mg Capsule 325 mg PO Q6H PRN (Reason: Pain) RF: 0 sevelamer carbonate 800 mg Tablet 800 mg PO TID RF: 0 ergocalciferol (vitamin D2) 2,500 unit Capsule 5,000 unit PO WK RF: 0 Renal Vitamin 0.8 mg Tablet 1 mg PO DAILY RF: 0 Lactobacillus acidophilus Capsule 2 tabs PO DAILY RF: 0 metoclopramide HCl 10 mg Tablet 5 mg PO DAILY RF: 0 insulin aspart U-100 100 unit/mL Insulin Pen 3 unit SUBCUT TID RF: 0 rosuvastatin 40 mg Tablet 40 mg PO HS RF: 0 Changed Lantus U-100 Insulin 100 unit/mL Solution 23 unit SUBCUT HS Qty: 0 RF: 0 Discontinued hydralazine 10 mg Tablet 10 mg PO TID RF: 0 carvedilol 12.5 mg Tablet 6.25 mg PO BID RF: 0 Stand-Alone Forms: [facility]charge Orders: Discharge Order (Routine); Ordered 12/26/18 Ordered By: Kenton Cruz Admission Data Admit Date/Time: 12/23/18 18:31 Attending Provider: Kenton Cruz Admit Provider: Moon Francisco Primary Care Provider: PCP,NO Other Providers: Edilberto Gomez ; Moon Francisco Emile Pierre III Service: Telemetry
[2018-12-26] MEDS: WARFARIN SOD 5 MG TAB PO SCH (16:29)
[2018-12-27] MEDS ORDERED: ISOSORBIDE MONO EXTENDED REL 60 MG TABCR PO SCH (09:00)
[2018-12-30] MEDS ORDERED: cloNIDine HCL 0.3 MG/24 HR TRANSDERM SYS TD SCH (09:00)
--- NOTE | 2018-12-31 10:35 | Coding Query ---
CODING QUERY To promote full compliance with coding requirements relating to patient care, provider participation is requested in all cases of corporate real estate specialist uncertainty. Please assist us with the question(s) below: Coding Question(s): Patient admitted with sudden onset of right sided n/t and weakness. Patient ESRD/diabetic with hypertension. Please document, if known or suspected, the etiology of the patient's stroke- like symptoms. Thanks for your help! Musa Alcantar WORD PROCESSING SUPERVISOR [facility] Physician's Response(s): possible Tia Principal Diagnosis: "that condition established after study, to be chiefly responsible for occasioning the admission of the patient to the hospital for care." Co-Existing Principal Diagnosis: "when two or more diagnoses equally meet the criteria for principal diagnosis as determined by the circumstances of admission, diagnostic work up, and/or therapy provided, and the Alphabetic Index, Tabular List, or another coding guideline does not provide sequencing direction, any one of the diagnoses may be sequenced first." "When the physician has documented what appears to be a current diagnosis in the body of the record, but has not included the diagnosis in the final diagnostic statement, the physician should be asked whether the diagnosis should be added." (Source Coding [facility] 2 QTR90. p3-4) GEORGINA
== END 2018-12-26 17:29 | disposition home or self-care (01) | DRG 69 ==
LOC: ED 15:02 → 2S 18:31 → SUATTDRO 18:31 → 2S 18:55